=== PATIENT | male | born 1985 | race Caucasian/White ===

== ENCOUNTER 2023-10-17 20:34 | Observation (INO) | payer SELFPAY ==
[2023-10-17 20:35] VITALS: BP 139/89; PULSE 77; RESP 16; TEMP 36.3; O2SAT 99; BMI 19.3
[2023-10-17 20:38] VITALS: BP 139/89; PULSE 77; RESP 16; TEMP 36.3; O2SAT 98
--- NOTE | 2023-10-17 20:53 | CT_ITS ---
We are attempting to reach an attending provider to discuss findings. An addendum with communication details will be sent when the communication is complete. STUDY: CT ABDOMEN AND PELVIS WITH CONTRAST REASON FOR EXAM: Male, 38 years old. RLQ pain RADIATION DOSAGE (If Supplied By Facility): CTDIvol = ( 11.97 ) mGy, DLP = ( 385.22 ) mGycm TECHNIQUE: Transaxial images were obtained from the dome of the diaphragm to the symphysis pubis without oral contrast. IV 100mL Isovue-370 was administered. Sagittal and coronal images were reconstructed. Individualized dose optimization techniques were used for this CT. COMPARISON: None. FINDINGS: The visualized lung bases are unremarkable. The visualized portions of the heart are within normal limits. Normal liver. Normal gallbladder and extrahepatic biliary system. Normal spleen. Normal pancreas. Normal bilateral adrenal glands. Normal right kidney. Normal left kidney. Normal visualized stomach. Normal small intestine. Normal colon. There is a tubular, thick-walled appendix (>7mm), consistent with acute appendicitis. Small appendicolith. No free air or abscess. Normal abdominal aorta. Normal inferior vena cava. Normal retroperitoneum. Normal urinary bladder. Normal abdominal wall. Normal osseous structures. CT/Abdomen/Pelvis W IV Cont ONLY IMPRESSION: Acute appendicitis without evidence of perforation. Electronically Signed: Charles Allen MD at 22:01 EDT ,
--- NOTE | 2023-10-17 20:53 | ED.VIS.GI ---
HPI HPI - GI History of Present Illness Chief Complaint: Abd Pain Narrative Narrative: 38-year-old male who denies significant past medical history presents with abdominal pain that has had for the last 3 days. He states it started out diffuse and periumbilical but now has moved to the right lower quadrant. His neighbor who is an RN gave him something to drink which made him defecate because he feels bloated and thought maybe he was constipated. He denies any exacerbating or alleviating factors but any jarring movement hurts his right lower quadrant. He states it is difficult for him to move his leg on the right because it causes pain in his abdomen. He denies any nausea or vomiting, no fevers or chills, no diarrhea. No hematuria or dysuria. No prior abdominal surgeries. PFSH PFSH Allergy/AdvReac Type Severity Reaction Status Date / Time No Known Allergies Allergy Verified 10/17/23 20:38 Social History Smoking Status: Current every day smoker tobacco type: cigarettes ROS ROS ED ROS Narrative Constitutional: No fever, no chills. HEENT: No sore throat. No neck pain. No loss of vision. No rhinorrhea. Cardiovascular: No chest pain. No palpitations. No pedal edema. Respiratory: No cough, no shortness of breath. Abdominal: Right lower quadrant abdominal pain. Worse with movement and any jarring motion. No nausea. No vomiting. No diarrhea. Genitourinary: No dysuria. No hematuria. Musculoskeletal: No myalgias. No arthralgias. Neurologic: No headaches. No dizziness. No lightheadedness. Skin: No rash. No change in color. Psychiatric: No depression. No anxiety. EXAM Physical Exam Narrative Exam Narrative: Afebrile. Vital signs noted. HEENT: Normocephalic. Atraumatic. PERRL, EOMI. Neck soft and supple. No point tenderness or step off. Cardiovascular: Regular rate and rhythm. No murmurs, rubs, or gallops appreciated. Respiratory: No tachypnea. Lungs clear to auscultation bilaterally. Gastrointestinal: Abdomen soft, with tenderness over McBurney's point. Positive normoactive bowel sounds. No rebound or guarding. Negative heel strike. Neurological: Awake. Alert. Nonfocal, nonlateralizing. Skin: No rash. Normal color. No pallor. Musculoskeletal: No pedal edema. Full range of motion extremities. Const Vital Signs: 10/17/23 20:35 10/17/23 20:35 10/17/23 20:38 Temperature 97.4 F L 97.4 F L 97.4 F L Temperature Source Temporal Temporal Temporal Pulse Rate 77 77 77 Respiratory Rate 16 16 16 Blood Pressure 139/89 H 139/89 H 139/89 H Blood Pressure Mean 105 105 105 Pulse Ox 99 99 98 Oxygen Delivery Method Room Air Room Air Room Air 10/17/23 21:38 10/17/23 22:00 10/17/23 22:35 Temperature 98.3 F 98.6 F Temperature Source Oral Oral Pulse Rate 58 L 59 L 54 L Respiratory Rate 16 16 18 Blood Pressure 130/89 H 132/79 H 134/83 H Blood Pressure Mean 102 96 100 Pulse Ox 100 99 99 Oxygen Delivery Method Room Air Room Air 10/17/23 22:59 Temperature 98.5 F Temperature Source Pulse Rate 61 Respiratory Rate 17 Blood Pressure 134/83 H Blood Pressure Mean 100 Pulse Ox 97 Oxygen Delivery Method MDM MDM MDM Narrative Medical decision making narrative: In the differential diagnosis is diverticulitis of the right lower quadrant versus appendicitis. I have low suspicion for ureterolithiasis because the history and physical does not support this. He was administered morphine and Zofran for analgesia and bolused IV fluids. CBC and CMP will be obtained along with CT of the abdomen pelvis. I reviewed his laboratory work and he has an elevated white count of 12.4, hemoglobin normal at 13.8, hematocrit 41.7, platelet count normal at 241. Review of his electrolyte panel is grossly unremarkable save for glucose of 119 with a anion gap low at 4. AST is low at 12 with a normal ALT. After first round of pain medications, he is having continued pain. I reviewed the radiology report of the CT of the abdomen pelvis which shows acute appendicitis and a dilated appendix with small appendicolith. No evidence of perforation. Patient will be discussed with Dr. Delgado. He would like Tom tompkins. Disposition is admit/2 OR. Patient is in stable condition. History & Record Review Discussion w/independent historian: Patient Additional record(s) reviewed:: Prior ED visit Lab Data Attestation: I reviewed the patient's lab results. Labs: Laboratory Results - last 24 hr 10/17/23 10/17/23 20:50 21:50 WBC 12.4 H RBC 4.81 Hgb 13.8 Hct 41.7 MCV 86.7 MCH 28.7 MCHC 33.1 RDW Std Deviation 39.7 RDW Coeff of Stu 12.5 Plt Count 241 MPV 9.3 Immature Gran % (Auto) 0.300 Neut % (Auto) 75.5 H Lymph % (Auto) 15.5 L [place] % (Auto) 5.3 Eos % (Auto) 2.8 Baso % (Auto) 0.6 Absolute Neuts (auto) 9.3 H Absolute Lymphs (auto) 1.92 Nucleated RBC % 0 Sodium 140 Potassium 3.9 Chloride 106 Carbon Dioxide 30.0 Anion Gap 4 L BUN 12 Creatinine 1.02 Estim Creat Clear Calc 99.56 Est GFR (MDRD) Af Amer 106 Est GFR (MDRD) Non-Af 88 BUN/Creatinine Ratio 11.8 Glucose 119 H Calcium 9.6 Total Bilirubin 0.40 AST 12 L ALT 16 Alkaline Phosphatase 84 Total Protein 7.7 Albumin 4.0 Globulin 3.7 Albumin/Globulin Ratio 1.1 Urine Color Yellow Urine Clarity Clear Urine pH 8.0 Ur Specific [place] 1.010 Urine Protein Negative Urine Glucose (UA) Normal Urine Ketones Negative Urine Occult Blood Negative Urine Nitrite Negative Urine Bilirubin Negative Urine Urobilinogen Normal Ur Leukocyte Esterase Negative Urine RBC 0 SEEN Urine WBC 0 SEEN Ur Squamous Epith Cells 0 SEEN Urine Bacteria 0 SEEN Urine Mucus 0 SEEN Radiography Diagnostic Testing: Clinical Impression(s) from Imaging Studies Abdomen/Pelvis CT 10/17/23 20:53 IMPRESSION: Acute appendicitis without evidence of perforation. Electronically Signed: Charles Allen MD at 22:01 EDT , ADDENDUM: 10/17/23 2232 IMPRESSION: Acute appendicitis without evidence of perforation. N.B. : The above Results were Read Back by Charles Allen MD to Dom Whatley MD, and understanding confirmed on 10/17/2023 22:25:41 (ET). Electronically Signed: Charles Allen MD at 22:01 EDT , Discharge Plan Triage Chief Complaint: Abd Pain ED Provider: Dom Whatley Dx/Rx/DC Orders Primary Care Provider: Care Physician,No Primary Referrals: Care Physician,No Primary [Primary Care Provider] -
[2023-10-17] MEDS: Morphine 4 MG/ML Syringe IV ×2 (21:08→22:32)
[2023-10-17] MEDS: Ondansetron 4 MG/2 ML Vial IV (21:08)
[2023-10-17] MEDS: 0.9% Normal Saline (1000mL) 1,000 ML 1000 ML IV (21:08)
[2023-10-17 21:12] LABS: Absolute Lymphocyte Count 1.92 X10^3/uL (0.83-4.51); Absolute Neutrophil Count 9.3 X10^3/uL (2.0-7.7); Basophil# 0.07 X10^3/uL; Basophil% 0.6 % (0-1); Eosinophil# 0.35 X10^3/uL; Eosinophils% 2.8 % (0-5); Hematocrit 41.7 % (40-54); Hemoglobin 13.8 g/dL (13.0-16.5); Lymphocyte # 1.92 X10^3/ul (0.83-4.51); Lymphocyte % 15.5 % (19-41); Mean Corp Hgb Conc 33.1 g/dL (32-36); Mean Corpuscular Hgb 28.7 pg (27.0-32.0); Mean Corpuscular Volume 86.7 fL (80-94); Mean Platelet Vol. 9.3 fl (6.2-12.0); Monocyte# 0.66 X10^3/uL; Monocyte% 5.3 % (0-10); NRBC Flagged by Analyzer 0 % (0-5); Neutrophil # 9.33 X10^3/uL (2.7-7.7); Neutrophil % 75.5 % (47-70); Platelet Count 241 K/mm3 (150-450); RBC Distribution Width CV 12.5 % (11.6-14.6); RBC Distribution Width SD 39.7 fl (35.1-43.9); Red Blood Count 4.81 M/mm3 (4.6-6.2); White Blood Count 12.4 K/mm3 (4.4-11.0)
[2023-10-17 21:35] LABS: ALB/GLOB Ratio 1.1 RATIO (0.9-2.4); AST(SGOT) 12 U/L (15-37); Alanine Aminotransfer ALT/SGPT 16 U/L (16-61); Alkaline Phosphatase 84 U/L (45-117); Anion Gap 4 (5-15); BUN 12 mg/dL (7-18); BUN/Creat Ratio 11.8 RATIO (10-20); Calcium,Total 9.6 mg/dL (8.5-10.1); Chloride 106 mmol/L (98-107); Creatinine, Serum 1.02 mg/dL (0.70-1.30); EST Glomerular Filtration Rate 88 mL/min (>60); Est Glom Filt Rate - Afr Amer 106 mL/min (>60); Estimated Creatinine Clearance 99.56 ml/min; Globulin 3.7 g/dL (2.2-4.2); Glucose 119 mg/dL (74-106); Potassium 3.9 mmol/L (3.5-5.1); Protein, Total 7.7 g/dL (6.4-8.2); Sodium Level 140 mmol/L (136-145)
[2023-10-17 21:38] VITALS: BP 130/89; PULSE 58; RESP 16; TEMP 36.8; O2SAT 100
[2023-10-17 21:53] LABS: Bacteria 0 SEEN /hpf (None Seen); Mucous, Urine 0 SEEN /hpf (<or=2+); Red Blood Cells-Urine 0 SEEN /hpf (0-5); Squamous Epithelial Cells - UA 0 SEEN /hpf (0-5); White Blood Cells 0 SEEN /hpf (0-5)
[2023-10-17 21:55] LABS: Color, Urine Yellow (Yellow); Glucose, Dipstick Normal (Normal); Ketone-Dipstick Negative (Negative); Leukocyte Esterase-Dipstick Negative /ul (Negative); Nitrite-Dipstick Negative (Negative); Occult Blood-Urine Negative /ul (Negative); Protein-Dipstick Negative (Negative); Urine Bilirubin Dipstick Negative (Negative); Urine Clarity Clear (Clear); Urine Urobilinogen Normal (Normal)
[2023-10-17 22:00] VITALS: BP 132/79; PULSE 59; RESP 16; TEMP 37; O2SAT 99
[2023-10-17 22:35] VITALS: BP 134/83; PULSE 54; RESP 18; O2SAT 99
[2023-10-17 22:42] VITALS: BMI 19.3
[2023-10-17] MEDS: Piperacil/Tazobactam 3.375 GM in 0.9% Normal Saline (50mL MB+) 50 ML IV (22:52)
[2023-10-17 22:59] VITALS: BP 134/83; PULSE 61; RESP 17; TEMP 36.9; O2SAT 97
--- NOTE | 2023-10-17 23:46 | HP.PCM_ITS ---
HPI - General General Date of Admission: 10/17/23 Chief Complaint: Acute onset abdominal pain HPI Narrative LEON PANDEY, is a 38 M who presents to [facility] with complaints of approximately 3 days of periumbilical pain that migrated to the right lower quadrant and intensified. He denies any prior episodes of this character of pain. He denies any associated nausea or fevers. However, he does acknowledge that there have been some chills. He shares that on the way in as well as following his CT scan he felt these chills. He denies any sick contacts. He shares that his bowels have moved regularly and that his landlord, who works as a registered nurse, recommended that he try to go on a bowel regimen before presenting for his pain symptoms and this worked for his bowels but his pain persisted. Patient's ER workup was notable for CBC with demonstrated leukocytosis at 12.4. CT imaging of the abdomen pelvis is consistent with acute uncomplicated appendicitis and no evidence of an appendicolith. Patient denies any past medical history. Patient's only prior surgical history was done remotely as a child where he underwent excision of a birthmark from the posterior aspect of his right upper extremity. He denies any anesthetic complications. PFSH Allergy/AdvReac Type Severity Reaction Status Date / Time No Known Allergies Allergy Verified 10/17/23 20:38 Social History Smoking Status: Current every day smoker tobacco type: cigarettes Vital Signs Vital Signs Vital Signs: 10/17/23 20:35 10/17/23 20:35 10/17/23 20:38 Temperature 97.4 F L 97.4 F L 97.4 F L Temperature Source Temporal Temporal Temporal Pulse Rate 77 77 77 Respiratory Rate 16 16 16 Blood Pressure 139/89 H 139/89 H 139/89 H Blood Pressure Mean 105 105 105 Pulse Ox 99 99 98 Oxygen Delivery Method Room Air Room Air Room Air 10/17/23 21:38 10/17/23 22:00 10/17/23 22:35 Temperature 98.3 F 98.6 F Temperature Source Oral Oral Pulse Rate 58 L 59 L 54 L Respiratory Rate 16 16 18 Blood Pressure 130/89 H 132/79 H 134/83 H Blood Pressure Mean 102 96 100 Pulse Ox 100 99 99 Oxygen Delivery Method Room Air Room Air 10/17/23 22:59 Temperature 98.5 F Temperature Source Pulse Rate 61 Respiratory Rate 17 Blood Pressure 134/83 H Blood Pressure Mean 100 Pulse Ox 97 Oxygen Delivery Method Weight Weight: 155 lb Body Mass Index (BMI) 19.3 Physical Exam Const alert General Appearance: cooperative Resp normal respiratory effort GI GI Narrative: Slender, no scars, nondistended, soft, tender to palpation over McBurney's point. Negative Rovsing's. Positive psoas sign. Negative obturator sign. Results Lab / Micro Data 10/17/23 20:50 10/17/23 20:50 Labs: Laboratory Results - last 24 hr 10/17/23 20:50: WBC 12.4 H, RBC 4.81, Hgb 13.8, Hct 41.7, MCV 86.7, MCH 28.7, MCHC 33.1, RDW Std Deviation 39.7, RDW Coeff of Stu 12.5, Plt Count 241, MPV 9.3, Immature Gran % (Auto) 0.300, Neut % (Auto) 75.5 H, Lymph % (Auto) 15.5 L, [place] % (Auto) 5.3, Eos % (Auto) 2.8, Baso % (Auto) 0.6, Absolute Neuts (auto) 9.3 H, Absolute Lymphs (auto) 1.92, Nucleated RBC % 0, Sodium 140, Potassium 3.9, Chloride 106, Carbon Dioxide 30.0, Anion Gap 4 L, BUN 12, Creatinine 1.02, Estim Creat Clear Calc 99.56, Est GFR (MDRD) Af Amer 106, Est GFR (MDRD) Non-Af 88, BUN/Creatinine Ratio 11.8, Glucose 119 H, Calcium 9.6, Total Bilirubin 0.40, AST 12 L, ALT 16, Alkaline Phosphatase 84, Total Protein 7.7, Albumin 4.0, Globulin 3.7, Albumin/Globulin Ratio 1.1 10/17/23 21:50: Urine Color Yellow, Urine Clarity Clear, Urine pH 8.0, Ur Specific [place] 1.010, Urine Protein Negative, Urine Glucose (UA) Normal, Urine Ketones Negative, Urine Occult Blood Negative, Urine Nitrite Negative, Urine Bilirubin Negative, Urine Urobilinogen Normal, Ur Leukocyte Esterase Negative, Urine RBC 0 SEEN, Urine WBC 0 SEEN, Ur Squamous Epith Cells 0 SEEN, Urine Bacteria 0 SEEN, Urine Mucus 0 SEEN Imaging Radiology Impression Abdomen/Pelvis CT 10/17/23 20:53 IMPRESSION: Acute appendicitis without evidence of perforation. Electronically Signed: Charles Allen MD at 22:01 EDT Reading Location ID and State: [address] [place] [address] Tel , Service support , ADDENDUM: 10/17/23 2232 IMPRESSION: Acute appendicitis without evidence of perforation. N.B. : The above Results were Read Back by Charles Allen MD to Dom Whatley MD, and understanding confirmed on 10/17/2023 22:25:41 (ET). Electronically Signed: Charles Allen MD at 22:01 EDT , Assessment & Plan Assessment/Plan (1) Acute appendicitis: PLAN: This is a 38-year-old male who presents with a roughly 3-day history of progressive abdominal discomfort and associated chills whose ER workup is consistent with a diagnosis of acute appendicitis. Indeed, his exam is confirmatory as well. Treatment options were discussed and I specifically recommended surgical appendectomy. Details of a laparoscopic appendectomy were reviewed and patient states that he is ready to be underway with surgery so that the pain can stop. He has already been dosed with 3.375 g of Zosyn by emergency medicine. Given the hour we will plan to proceed to the operating room first thing in the morning for appendectomy. Consents to be obtained by nursing. Patient would then be returned to the floor for a diet challenge but provided he does well with this diet challenge and pain control would look for discharge to home later tomorrow. Additional post procedure expectations were reviewed with patient including outpatient follow-up and activity restrictions. 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 Charges/Coding Visit Charges Inpatient E&M: 81594 Init Hosp L2
[2023-10-18] VITALS (14 sets, daily range): BP systolic 113–135; BP diastolic 60–80; PULSE 48–75; RESP 12–18; TEMP 36.6–37.9; O2SAT 95–100; BMI 18.6
--- NOTE | 2023-10-18 | APP_PTH ---
PATIENT: LEON PANDEY LOC: MS3 U#:[id number] AGE/SX: 38/M ROOM: GA317 RE10/17/[address]: Dr. Bear Delgado MD : 1985 BED: 1 DIS: 10/18/2023 SPEC #: [id number] RECD: 10/18/23 10:05 STATUS: PASCUAL HUMERA #: [id number] BULMARO: 10/18/23 00:[address]: Bear Delgado DEPT: SURGICAL PATHOLOGY RECD BY: Tai Roberts ENTERED: 10/18/23 10:05 SP TYPE: APPENDIX OT DR: No Primary Care Phys Tissues: Appendix, NOS Procedures: Surgery Specimen Level III HEADER OPERATION: Laparoscopic, Appendectomy PRE-OP DIAGNOSIS: Acute appendicitis TISSUE SUBMITTED: Appendix MICROSCOPIC DIAGNOSIS Appendix, appendectomy: Acute appendicitis and periappendicitis. WAN/ 10/19/2023 MICROSCOPIC DESCRIPTION Slides are reviewed. GROSS DESCRIPTION Received in fixative is one container labeled with the patient's name and designated appendix. The specimen consists of an appendix measuring 6.0 cm in length and up to 1.2 cm in diameter. The serosa is congested and hemorrhagic and focally covered in lovelace purulent exudate. No obvious perforation is identified. The lumen is filled with fecal and purulent material. No fecalith is identified. Police Artist sections are submitted in one cassette. / SJ: 10/18/23 TC:2 CPT: 42601
[2023-10-18] MEDS: HYDROmorphone 0.5 MG/0.5 ML SYRINGE IV ×3 (00:58→14:28)
[2023-10-18] MEDS: 0.9% Normal Saline (1000mL) 1,000 ML 125 ML IV (02:39)
[2023-10-18] MEDS: 0.9% Saline Lock 10 ML Syringe IV ×2 (02:39→14:29)
[2023-10-18] MEDS: Piperacil/Tazobactam 3.375 GM in 0.9% Normal Saline (50mL MB+) 50 ML IV ×2 (05:56→14:02)
[2023-10-18] MEDS: Lactated Ringers 1,000 ML 15 ML IV ×2 (06:45→08:21)
[2023-10-18] MEDS: Bupivacaine Mpf 0.5% 30 ML VIAL (07:06)
--- NOTE | 2023-10-18 07:09 | PCM.OPRPT ---
Problems Associated Problem List Diagnoses (1) Acute appendicitis: Report of Operation Date of Procedure: 10/18/23 Pre-Operative Diagnosis: Acute appendicitis Post-Operative Diagnosis: Acute uncomplicated appendicitis Surgery/Procedure Performed:: Laparoscopic appendectomy Surgeon: Bear Delgado dishwasher busser: None Type of Anesthesia: General/Supplemental Anesthesiologist: Vasiliy Dominguez Specimen's removed: appendix Estimated Blood Loss (mL): 10 Description of Procedure: After appropriate identification in the preoperative holding area, the patient was brought to the operating room and placed supine on the operating room table. Antibiotics had been preoperatively administered. Patient was then induced with general endotracheal anesthetic. The abdomen was prepped and draped in usual sterile fashion. Formal timeout was conducted to confirm both the patient and the procedure. A supraumbilical incision was made and carried down to the level of the fascia which was sharply opened. After opening the peritoneum in like fashion a finger sweep was made to confirm position, and a balloon trocar was placed and pneumoperitoneum was established to 15 mmHg. Patient was positioned in Trendelenburg with the left side down. 2 additional 5 mm trocars were placed in the left lower quadrant and suprapubic positions. The peritoneum was inspected and there were no signs of inadvertent injury from this Dodd entry. The appendix was only partially visualized given the severe inflammation causing adhesions to the serosa. Using blunt laparoscopic dissection windows were made and this veil of adhesions and were divided with the use of our harmonic scalpel as a proved to be too tenacious to simply tear. I focused my dissection on the lateral aspect and directly adjacent to the appendiceal body. Ultimately I was able to proceed from proximal to distal and released the tip from where it was embedded in the retroperitoneum. Then I proceeded to bluntly make windows and the mesoappendix directly adjacent to the appendix and this structure was divided with application of a laparoscopic harmonic. Lastly after confirming that we had reached the coalescence of the tinea coli, the base of the appendix was sealed and amputated with the use of an Endo REBEKA stapler. The appendix was placed in an Endo Catch bag. The staple line was inspected for hemostasis. After hemostasis was confirmed the appendix was removed from the umbilical port site. Pneumoperitoneum was then evacuated and the supraumbilical port site fascia was closed with #1 Vicryl in a [id number] fashion. The port sites were infiltrated with 30 mL local anesthetic. The skin of each port site was closed with 4-0 Monocryl in a subcuticular fashion. Steri-Strips and OpSite dressings were applied. Patient tolerated procedure well without any apparent complications. They were awoken from general anesthetic without issue and transferred to post anesthesia care unit for ongoing recovery. Complications None Admit VTE Documentation VTE Mechan Device Prophylaxis: SCD's Procedures Digestive 40xxx-49xxx: 98308 Laparoscopy appendectomy
--- NOTE | 2023-10-18 13:15 | PCM.DC ---
Discharge Instructions Diet Discharge Diet: Light diet - advance as tolerated Activity Discharge Activity: May Not Drive (while taking narcotic pain medication) Lifting Restrictions: No lifting greater than 15 pounds for 4 weeks Dressing / Incision Call your doctor if your incision/area has: Continuous Slow Oozing, Sudden Increased Bleeding, Increased Pain/ Swelling, Increased Redness, Foul Smelling Discharge and Swelling at the incision site Call your doctor if you observe: Fever of 101 or Higher Remove Dressing in: 2 days Cleanse incision/area with: Soap & Water Follow Up Care Please Follow Up With: Bear Delgado MD When: Please contact the office to follow-up in 10 days from your surgery date. Please call [phone] Test Results: Test results from this visit will be discussed in further detail at your follow-up appointment, if applicable. Discharge Plan Admission Admit Date/Time: 10/17/23 23:43 Primary Reason for Your Visit: Acute appendicitis Attending Provider: Bear Delgado Primary Care Provider: Care Physician,No Primary Instructions Additional Instructions / Restrictions: Appendectomy Diet ? Start light with soups and soft bland foods. You may advance diet as tolerated. Activity ? You may drive in 3-5 days but not while taking narcotic pain medication. ? I encourage walking. You may go up steps, one at a time. ? Do not swim or use hot tubs for 2 weeks. ? For comfort, you may use warm compresses or ice as needed for 15-20 minutes at a time. Lifting ? You may lift up to 15 pounds for the 4 weeks. Dressings/Incision ? You may shower OVER your plastic dressings ? Do NOT tub bathe for 1 week ? Leave plastic dressings on for 2 days. ? When plastic dressings are removed, you will find steri-strips. It is okay to continue showering with them in place, pat them dry. ? You may remove steri-strips after 1 week. We recommend getting them soaking wet for easier removal. Medications ? Anesthesia used during surgery and pain medications may cause constipation. I recommend initiating on the day of surgery a fiber supplement like, Metamucil, Citrucel, FiberCon, Benefiber, or a generic form of these medications. 1 heaping tablespoon in water daily. You may continue to utilize any bowel regimen or oral laxatives that you routinely take. ? As long as you are not intolerant to Tylenol, acetaminophen, ibuprofen, Motrin, Advil, Aleve, or similar medications, I would recommend transitioning to these [id number] medicines as soon as possible instead of continued use of narcotic pain medication. Follow up ? You should call [facility] soon after surgery, at [phone] option 1 to make a follow up appointment for 10 days after your surgery. Discharge Orders/Prescriptions Prescriptions: New oxycodone 5 mg tablet 5 mg PO Q6H PRN (Reason: pain) 3 Days Qty: 10 0RF Referrals / Follow Up: Care Physician,No Primary [Primary Care Provider] - Disposition Disposition (needs filled in before D/C Order can be placed): Home, Self Care
--- NOTE | 2023-10-18 14:51 | CASEMGMT ---
RN CM into pt room, provided pt with a local healthcare directory pamphlet. Pt denies any homegoing needs. He reports he reapplied for medicaid yesterday. Pt is I in ADL's.
--- NOTE | 2023-10-18 15:11 | PHA.DC.MC.R ---
Pharmacy [facility] has performed discharge medication reconciliation and counseling for this patient. 1. OXYCODONE 5MG PO Q6H PRN PAIN The patient's discharge medication list was reviewed for discrepancies and discrepancies were resolved. The patient was counseled on the following discharge medications and changes in medications for homegoing were reviewed. The Reason for Use, instructions for use, and potential side effects were reviewed for all new medications. The patient's questions regarding all of their medications were answered. The patient was able to verbally demonstrate an understanding of their discharge medications. Medications at Discharge Home Medications oxycodone 5 mg tablet 5 mg PO Q6H PRN pain 3 days #10 tabs 10/18/23
== END 2023-10-18 18:10 | disposition home or self-care (01) ==
LOC: ED 23:33 → MS3 10-18 00:15
PROVIDERS: Admitting Provider Surgery; Emergency Provider Emergency Medicine; Visit Provider Surgery
PROC: 0DTJ4ZZ Resection of Appendix, Percutaneous Endoscopic Approach (ICD-10-PCS; CPT 44970; principal; 2023-10-18 06:00)
DX: K35.80 Unspecified acute appendicitis (principal); F17.210 Nicotine dependence, cigarettes, uncomplicated
CPT/HCPCS: 44970; 00840; 74177; 80053; 81001; 85025; 88304; 96365; 96366; 96375; 96376; 99221; 99284; J7030; J7120; Q9967; A4216; G0378; J2405